=== PATIENT | female | born 1940 | race Hispanic/Latino ===

== ENCOUNTER 2017-10-18 08:18 | Day surgery (SDC) | payer MEDICARE, OTHER ==
[2017-10-14 07:12] VITALS: BMI 21.5
[2017-10-18 09:03] LABS: BASO # 0.01 K/mm3 (0.0-2.0); BASO % 0.3 % (0.0-3.0); EOS # 0.2 (0.0-0.7); EOS % 4.8 % (1.5-5.0); GRAN # 2.33 (1.4-6.5); GRAN % 58.7 % (50.0-68.0); HEMOGLOBIN 11.5 g/dL (12.0-16.0); LYMPH % 25.3 % (22.0-35.0); MEAN CELL VOLUME 89.4 fl (80.0-105.0); MEAN CORPUSCULAR HEMOGLOBIN 30.5 pg (25.0-35.0); MEAN CORPUSCULAR HGB CONC 34.1 g/dl (31.0-37.0); MEAN PLATELET VOLUME 9.1 fl (7.0-11.0); MONO # 0.4 (0.1-0.6); MONO % 10.9 % (1.0-6.0); RBC 3.77 10^6/uL (3.5-6.1); RED CELL DISTRIBUTION WIDTH 14.6 % (11.5-14.5)
[2017-10-18 09:13] LABS: INR 1.12 (0.93-1.08); PARTIAL THROMBOPLASTIN TIME 26.5 Seconds (25.1-36.5); PROTHROMBIN TIME 12.9 SECONDS (9.4-12.5)
[2017-10-18] MEDS ORDERED: Propofol 10 mg/ml Inj (20 ML) ONE (09:48)
[2017-10-18] MEDS ORDERED: Sodium Chloride 0.9% 1,000 ML IV SCH (10:00)
[2017-10-18 11:31] VITALS: BP 131/65; PULSE 57; RESP 14; TEMP 97.5; O2SAT 98
== END 2017-10-18 12:23 | disposition home or self-care (01) ==
LOC: ENDO 08:18
PROVIDERS: ATTEND Internal Medicine Gastroenterology
DX: K31.819 Angiodysplasia of stomach and duodenum without bleeding (principal); K20.9 Esophagitis, unspecified; K76.6 Portal hypertension; K31.89 Other diseases of stomach and duodenum
CPT/HCPCS: 36415; 43255; 85025; 85610; 85730; J2001; J2704; J7030; J7040

== ENCOUNTER 2017-12-14 05:21 | Emergency (ER) | payer MEDICARE, OTHER ==
[2017-12-14 05:22] VITALS: BMI 21.5
[2017-12-14] MEDS ORDERED: Sodium Chloride 0.9% 1,000 ML IV STA (05:48)
--- NOTE | 2017-12-14 05:58 | ED PDOC ---
Arrival/HPI - General Historian: Patient - History of Present Illness Time/Duration: 4-6 hours Symptom Onset: Gradual Symptom Course: Unchanged Quality: Aching, Burning, Gas Like Activities at Onset: Rest <Arya Campos - Last Filed: 12/14/17 06:59> <Isaac Kolb - Last Filed: 12/14/17 19:19> - General Chief Complaint: GI Problem Time Seen by Provider: 12/14/17 05:29 - History of Present Illness Narrative History of Present Illness (Text): 12/14/17 05:49 Patient is a 76 year-old female with a PMH of non-alcoholic cirrhosis, gastric vascular ectasia (last EGD in September 2017), GI bleed, GERD, C-diff (treated in 2015), breast cancer (s/p mastectomy), and hypothyroidism presents to the ED complaining of diarrhea and abdominal pain. She states that the diarrhea began yesterday morning and has gotten a little better today after taking pepto- bismol. The abdominal pain started 4 hours ago and is what prompted the patient to come to the ED. She describes the abdominal pain as a cramping and burning. It is located in her lower right and left quadrants and does not radiate. Patient admitted to nausea and bright red blood per rectum intermittently (she has history of hemorrhoids). Patient denied vomiting, black/tarry stools, fever , chills, dyspnea, or chest pain. (Arya Campos) Past Medical History - Provider Review Nursing Documentation Reviewed: Yes - Travel History Have you recently traveled outside [place] w/in the past 3 mons?: No - Infectious Disease Hx of Infectious Diseases: C.diff - Tetanus Immunization Tetanus Immunization: Unknown - Cardiac Hx Pacemaker: No - Neurological Hx Paralysis: No - Endocrine/Metabolic Hx Hypothyroidism: Yes - Hematological/Oncological Hx Blood Transfusions: No (IRON INFUSIONS) Hx Blood Transfusion Reaction: No - Musculoskeletal/Rheumatological Hx Musculoskeletal Disorders: No - Gastrointestinal Other/Comment: non alcoholic cirrhosis - Psychiatric Hx Emotional Abuse: No Hx Physical Abuse: No Hx Substance Use: No - Surgical History Hx Hysterectomy: Yes Hx Mastectomy: Yes (left) Other/Comment: L mastectomy - Anesthesia Hx Anesthesia Reactions: No Hx Malignant Hyperthermia: No - Suicidal Assessment Feels Threatened In Home Enviroment: No <Arya Campos - Last Filed: 12/14/17 06:59> Family/Social History - Physician Review Nursing Documentation Reviewed: Yes Family/Social History: No Known Family HX Smoking Status: Former Smoker Hx Alcohol Use: Yes (SOCIAL) Hx Substance Use: No Hx Substance Use Treatment: No <CamposArya - Last Filed: 12/14/17 06:59> Allergies/Home Meds <AndresArya - Last Filed: 12/14/17 06:59> <Isaac Kolb - Last Filed: 12/14/17 19:19> Allergies/Adverse Reactions: Allergies codeine Adverse Reaction (Severe, Verified 10/14/17 07:12) NAUSEA levofloxacin Adverse Reaction (Severe, Verified 10/14/17 07:12) AFFECTED TENDONS Home Medications: Home Meds Medication Instructions Recorded Confirmed Levothyroxine Sodium 88 mcg PO QAM 02/24/12 10/18/17 Multivitamin [One Daily] 1 tab PO DAILY 07/10/15 10/18/17 Nadolol [Corgard] 20 mg PO Q48H 07/10/15 10/18/17 Fluticasone/Salmeterol 250/50 1 puff IH BID 10/14/17 10/18/17 [Advair Diskus] Omeprazole 20 mg PO DAILY 10/18/17 10/18/17 Review of Systems - Review of Systems Constitutional: absent: Fatigue, Fevers Eyes: absent: Vision Changes ENT: absent: Sore Throat, Rhinorrhea Respiratory: absent: SOB, Cough Cardiovascular: absent: Chest Pain, Edema Gastrointestinal: Abdominal Pain, Diarrhea, Nausea. absent: Vomiting Genitourinary Female: absent: Dysuria, Frequency Musculoskeletal: absent: Arthralgias Skin: absent: Rash, Pruritis Neurological: absent: Headache, Speech Changes Endocrine: absent: Diaphoresis Hemo/Lymphatic: absent: Adenopathy Psychiatric: absent: Anxiety, Depression <Arya Campos - Last Filed: 12/14/17 06:59> Physical Exam Vital Signs Reviewed: Yes Temperature: Afebrile Blood Pressure: Normal Pulse: Regular Respiratory Rate: Normal Appearance: Positive for: Non-Toxic, Comfortable Pain Distress: Mild Mental Status: Positive for: Alert and Oriented X 3 - Systems Exam Head: Present: Atraumatic, Normocephalic Pupils: Present: PERRL Extroacular Muscles: Present: EOMI Conjunctiva: Present: Normal Ears: Present: Normal Mouth: Present: Moist Mucous Membranes Pharnyx: Present: Normal. No: ERYTHEMA, EXUDATE Nose (External): Present: Atraumatic Neck: Present: Normal Range of Motion. No: JVD Respiratory/Chest: Present: Clear to Auscultation. No: Wheezes, Rales, Rhonchi Cardiovascular: Present: Regular Rate and Rhythm, Normal S1, S2. No: Murmurs, Rub, Gallop Abdomen: Present: Tenderness (mild tenderness to palpation lower quadrants bilaterally) Rectal: Present: Rectal Tenderness, Hemorrhoids, Normal Rectal Tone. No: Occult Blood, Gross Blood Upper Extremity: Present: Normal Inspection. No: Cyanosis, Edema Lower Extremity: Present: Normal Inspection. No: Edema Neurological: Present: Speech Normal Skin: Present: Warm, Dry Psychiatric: Present: Alert, Oriented x 3 <Arya Campos - Last Filed: 12/14/17 06:59> Vital Signs Temp Pulse Resp BP Pulse Ox 12/14/17 11:30 98.2 F 80 18 150/88 98 12/14/17 10:00 98.0 F 68 18 148/58 L 98 12/14/17 07:48 72 18 155/51 H 98 12/14/17 05:45 97.9 F 56 L 18 161/83 H 99 Medical Decision Making - Transfer of Care Patient signed out to Dr:: David Berrios <Arya Campos - Last Filed: 12/14/17 06:59> - Transfer of Care Patient signed out to Dr:: David Berrios labs ct scan <Isaac Kolb - Last Filed: 12/14/17 19:19> ED Course and Treatment: 12/14/17 06:59 Sign out given to Dr. David Berrios (Arya Campos) 12/14/17 06:39 Patient Seen With Resident: In agreement with resident note which contains more details about the patient. Patient was seen and evaluated with resident. Came up with plan and treatment together, labs possible ct scan (Isaac Kolb) - Lab Interpretations Lab Results: 12/14/17 06:39 12/14/17 06:39 Lab Results 12/14/17 06:39: Urine Color Straw, Urine Appearance Clear, Urine pH 6.0, Ur Specific [place] 1.010, Urine Protein Negative, Urine Glucose (UA) Negative, Urine Ketones Negative, Urine Blood Small H, Urine Nitrate Negative, Urine Bilirubin Negative, Urine Urobilinogen 0.2, Ur Leukocyte Esterase Small H, Urine RBC 2 - 5, Urine WBC 5 - 10, Ur Epithelial Cells 4 - 5, Urine Bacteria Mod 12/14/17 06:39: Sodium 144, Potassium 4.4, Chloride 107, Carbon Dioxide 24, Anion Gap 17, BUN 18, Creatinine 0.9, Est GFR ( Amer) > 60, Est GFR (Non- Af Amer) > 60, Random Glucose 112 H, Calcium 9.9, Phosphorus 4.2, Magnesium 1.9 , Total Bilirubin 0.5, AST 44 H, ALT 34, Alkaline Phosphatase 115, Total Protein 7.6, Albumin 4.4, Globulin 3.2, Albumin/Globulin Ratio 1.4, Lipase 198 12/14/17 06:39: WBC 4.8, RBC 3.71, Hgb 11.3 L, Hct 32.6 L, MCV 87.9, MCH 30.5, MCHC 34.7, RDW 13.4, Plt Count 144, MPV 9.1, Gran % 65.8, Lymph % (Auto) 19.1 L , [place] % (Auto) 10.1 H, Eos % (Auto) 4.6, Baso % (Auto) 0.4, Gran # 3.14, Lymph # (Auto) 0.9 L, [place] # (Auto) 0.5, Eos # (Auto) 0.2, Baso # (Auto) 0.02 12/14/17 06:39: PT 12.3, INR 1.07, APTT 26.8 12/14/17 06:39: TSH 3rd Generation 6.33 H - RAD Interpretation Radiology Orders: 12/14/17 07:08 ABD PELVIS PO & IV CONTRAST [CT] Stat - Medication Orders Current Medication Orders: Discontinued Medications Sodium Chloride (Sodium Chloride 0.9%) 1,000 mls @ 999 mls/hr IV .Q1H1M STA Stop: 12/14/17 06:48 Last Admin: 12/14/17 06:42 Dose: 999 mls/hr eMAR Start Stop Document 12/14/17 06:42 AD (Rec: 12/14/17 06:43 AD [id number]) Intravenous Solution Start Date 12/14/17 Start Time 06:42 End Date 12/14/17 End time 08:00 Total Infusion Time 78 Ondansetron HCl (Zofran Inj) 4 mg IVP STAT STA Stop: 12/14/17 05:49 Last Admin: 12/14/17 06:43 Dose: 4 mg IVP Administration Document 12/14/17 06:43 AD (Rec: 12/14/17 06:43 AD [id number]) Charges for Administration # of IVP Administrations 1 Pantoprazole Sodium (Protonix Inj) 40 mg IVP STAT STA Stop: 12/14/17 05:50 Last Admin: 12/14/17 06:43 Dose: 40 mg IVP Administration Document 12/14/17 06:43 AD (Rec: 12/14/17 06:43 AD [id number]) Charges for Administration # of IVP Administrations 1 - PA / [employer]OR[employer]IGN[employer] SALESPERSON / Resident Statement / has reviewed & agrees with the documentation as recorded. / has examined the patient and agrees with the treatment plan. <Isaac Kolb - Last Filed: 12/14/17 19:19> Disposition/Present on Arrival - Present on Arrival Any Indicators Present on Arrival: No History of DVT/PE: No History of Uncontrolled Diabetes: No Urinary Catheter: No History of Decub. Ulcer: No History Surgical Site Infection Following: None - Disposition Have Diagnosis and Disposition been Completed?: Yes Disposition Time: 07:00 <Arya Campos - Last Filed: 12/14/17 06:59> - Present on Arrival Any Indicators Present on Arrival: No - Disposition Have Diagnosis and Disposition been Completed?: Yes <Isaac Kolb - Last Filed: 12/14/17 19:19> - Disposition Diagnosis: Colitis, Abdominal pain Disposition: HOME/ ROUTINE Condition: FAIR Discharge Instructions (ExitCare): Diarrhea in Adolescents and Adults, Diverticulitis Additional Instructions: AURORA GARCIA, thank you for letting us take care of you today. Your provider was David Berrios and you were treated for abdominal pain / nausea / vomiting / diarriah. The emergency medical care you received today was directed at your acute symptoms. If you were prescribed any medication, please fill it and take as directed. It may take several days for your symptoms to resolve. Return to the Emergency Department if your symptoms worsen, do not improve, or if you have any other problems. Please contact your doctor or call one of the physicians/clinics you have been referred to that are listed on the Patient Visit Information form that is included in your discharge packet. Bring any paperwork you were given at discharge with you along with any medications you are taking to your follow up visit. Our treatment cannot replace ongoing medical care by a primary care provider outside of the emergency department. Thank you for allowing the [facility] team to be part of your care today. If you had an X-Ray or CT scan: A Radiologist will review the ED reading if any change in treatment is needed we will contact you. If you had a blood, urine, or wound culture: It will take several days for the results, if any change in treatment is needed we will contact you. If you had an STI test: It will take 48 hours for the results. Please call after 1 week if you have not heard back. Prescriptions: metroNIDAZOLE [Flagyl] 500 mg PO TID 14 Days #42 tab Referrals: Alix Alicia MD [Medical Doctor] - Follow up with primary Forms: [employer] (Ivorian)
[2017-12-14 06:53] VITALS: RESP 18
[2017-12-14 06:53] LABS: BASO # 0.02 K/mm3 (0.0-2.0); BASO % 0.4 % (0.0-3.0); EOS # 0.2 (0.0-0.7); EOS % 4.6 % (1.5-5.0); GRAN # 3.14 (1.4-6.5); GRAN % 65.8 % (50.0-68.0); HEMOGLOBIN 11.3 g/dL (12.0-16.0); LYMPH # 0.9 (1.2-3.4); LYMPH % 19.1 % (22.0-35.0); MEAN CELL VOLUME 87.9 fl (80.0-105.0); MEAN CORPUSCULAR HEMOGLOBIN 30.5 pg (25.0-35.0); MEAN CORPUSCULAR HGB CONC 34.7 g/dl (31.0-37.0); MEAN PLATELET VOLUME 9.1 fl (7.0-11.0); MONO # 0.5 (0.1-0.6); MONO % 10.1 % (1.0-6.0); RBC 3.71 10^6/uL (3.5-6.1); RED CELL DISTRIBUTION WIDTH 13.4 % (11.5-14.5); WHITE BLOOD COUNT 4.8 10^3/ul (4.5-11.0)
[2017-12-14 06:54] LABS: URINE BILIRUBIN NEGATIVE (NEGATIVE); URINE BLOOD SMALL (NEGATIVE); URINE GLUCOSE (UA) NEGATIVE (NEGATIVE); URINE LEUKOCYTE ESTERASE SMALL Leu/uL (NEGATIVE); URINE PROTEIN NEGATIVE mg/dL (<30 mg/dL); URINE UROBILINOGEN 0.2 E.U./dL (<1 E.U./dL)
[2017-12-14 06:56] LABS: URINE APPEARANCE CLEAR (CLEAR)
[2017-12-14 06:57] LABS: URINE COLOR STRAW (YELLOW)
[2017-12-14 07:06] LABS: ALB/GLOB RATIO 1.4 (1.1-1.8); ALBUMIN 4.4 g/dL (3.0-4.8); ALT/SGPT 34 U/L (7-56); AST/SGOT 44 U/L (14-36); BLOOD UREA NITROGEN 18 mg/dL (7-21); CALCIUM 9.9 mg/dL (8.4-10.5); GFR AFRICAN-AMERICAN > 60; GFR NON-AFRICAN AMERICAN > 60; INR 1.07; PARTIAL THROMBOPLASTIN TIME 26.8 Seconds (25.1-36.5); PROTHROMBIN TIME 12.3 SECONDS (9.4-12.5)
--- NOTE | 2017-12-14 07:10 | ED PDOC ---
Physical Exam Vital Signs Temp Pulse Resp BP Pulse Ox 12/14/17 11:30 98.2 F 80 18 150/88 98 12/14/17 10:00 98.0 F 68 18 148/58 L 98 12/14/17 07:48 72 18 155/51 H 98 12/14/17 05:45 97.9 F 56 L 18 161/83 H 99 Medical Decision Making ED Course and Treatment: 12/14/17 07:08 Case endorsed to me by Dr. Kolb. Patient is a 76 year-old female whose PMH includes non-alcoholic cirrhosis, gastric vascular ectasia (last EGD in September 2017), GI bleed, GERD, C-diff (treated in 2015), breast cancer (s/p mastectomy) , and hypothyroidism, with complaints of lower abdominal pain associated with diarrhea since one day ago. Currently pending lab results and CT abdomen and pelvis. No recent travel abroad, no dark or bloody stool. 12/14/17 10:58 Patient is not longer in any distress or pain. Patient is requesting Flagyl in addition to Augmentin, (Augmentin due to being allergic to cipro). Patient's CT scan showed colitis on results. lipase unremarkable. 12/14/17 11:00 CT abdomen and pelvis: Creator : Dar Beltran MD FINDINGS: LOWER THORAX: Unremarkable. LIVER: Unremarkable. No gross lesion or ductal dilatation. GALLBLADDER AND BILE DUCTS: Unremarkable. PANCREAS: Unremarkable. No gross lesion or ductal dilatation. SPLEEN: Unremarkable. ADRENALS: Unremarkable. No mass. KIDNEYS AND URETERS: Unremarkable. No hydronephrosis. No solid mass. VASCULATURE: Unremarkable. No aortic aneurysm. BOWEL: There is mural thickening in the sigmoid colon consistent with colitis APPENDIX: Normal appendix. PERITONEUM: Unremarkable. No free fluid. No free air. LYMPH NODES: Unremarkable. No enlarged lymph nodes. BLADDER: Unremarkable. REPRODUCTIVE: Unremarkable. BONES: No acute fracture. OTHER FINDINGS: None. IMPRESSION: There is mural thickening in the sigmoid colon consistent with colitis 12/14/17 11:[address] Sands who is requesting Flagyl since there is no indication for Augmentin (given hx of . 12/14/17 11:37 - Lab Interpretations Lab Results: 12/14/17 06:39 12/14/17 06:39 Lab Results 12/14/17 06:39: Urine Color Straw, Urine Appearance Clear, Urine pH 6.0, Ur Specific [place] 1.010, Urine Protein Negative, Urine Glucose (UA) Negative, Urine Ketones Negative, Urine Blood Small H, Urine Nitrate Negative, Urine Bilirubin Negative, Urine Urobilinogen 0.2, Ur Leukocyte Esterase Small H, Urine RBC 2 - 5, Urine WBC 5 - 10, Ur Epithelial Cells 4 - 5, Urine Bacteria Mod 12/14/17 06:39: Sodium 144, Potassium 4.4, Chloride 107, Carbon Dioxide 24, Anion Gap 17, BUN 18, Creatinine 0.9, Est GFR ( Amer) > 60, Est GFR (Non- Af Amer) > 60, Random Glucose 112 H, Calcium 9.9, Phosphorus 4.2, Magnesium 1.9 , Total Bilirubin 0.5, AST 44 H, ALT 34, Alkaline Phosphatase 115, Total Protein 7.6, Albumin 4.4, Globulin 3.2, Albumin/Globulin Ratio 1.4, Lipase 198 12/14/17 06:39: WBC 4.8, RBC 3.71, Hgb 11.3 L, Hct 32.6 L, MCV 87.9, MCH 30.5, MCHC 34.7, RDW 13.4, Plt Count 144, MPV 9.1, Gran % 65.8, Lymph % (Auto) 19.1 L , [place] % (Auto) 10.1 H, Eos % (Auto) 4.6, Baso % (Auto) 0.4, Gran # 3.14, Lymph # (Auto) 0.9 L, [place] # (Auto) 0.5, Eos # (Auto) 0.2, Baso # (Auto) 0.02 12/14/17 06:39: PT 12.3, INR 1.07, APTT 26.8 12/14/17 06:39: TSH 3rd Generation 6.33 H - RAD Interpretation Radiology Orders: 12/14/17 07:08 ABD PELVIS PO & IV CONTRAST [CT] Stat - Medication Orders Current Medication Orders: Discontinued Medications Sodium Chloride (Sodium Chloride 0.9%) 1,000 mls @ 999 mls/hr IV .Q1H1M STA Stop: 12/14/17 06:48 Last Admin: 12/14/17 06:42 Dose: 999 mls/hr eMAR Start Stop Document 12/14/17 06:42 AD (Rec: 12/14/17 06:43 AD [id number]) Intravenous Solution Start Date 12/14/17 Start Time 06:42 End Date 12/14/17 End time 08:00 Total Infusion Time 78 Ondansetron HCl (Zofran Inj) 4 mg IVP STAT STA Stop: 12/14/17 05:49 Last Admin: 12/14/17 06:43 Dose: 4 mg IVP Administration Document 12/14/17 06:43 AD (Rec: 12/14/17 06:43 AD [id number]) Charges for Administration # of IVP Administrations 1 Pantoprazole Sodium (Protonix Inj) 40 mg IVP STAT STA Stop: 12/14/17 05:50 Last Admin: 12/14/17 06:43 Dose: 40 mg IVP Administration Document 12/14/17 06:43 AD (Rec: 12/14/17 06:43 AD [id number]) Charges for Administration # of IVP Administrations 1 - Scribe Statement The provider has reviewed the documentation as recorded by the Serenity Barragan Provider Scribe Attestation: All medical record entries made by the Scribe were at my direction and personally dictated by me. I have reviewed the chart and agree that the record accurately reflects my personal performance of the history, physical exam, medical decision making, and the department course for this patient. I have also personally directed, reviewed, and agree with the discharge instructions and disposition. Disposition/Present on Arrival - Present on Arrival Any Indicators Present on Arrival: No History of DVT/PE: No History of Uncontrolled Diabetes: No Urinary Catheter: No History of Decub. Ulcer: No History Surgical Site Infection Following: None - Disposition Have Diagnosis and Disposition been Completed?: Yes Diagnosis: Colitis, Abdominal pain Disposition: HOME/ ROUTINE Disposition Time: 11:00 Patient Problems: Current Active Problems Problem Status Onset Abdominal pain Acute Colitis Acute Condition: FAIR Discharge Instructions (ExitCare): Diarrhea in Adolescents and Adults, Diverticulitis Additional Instructions: AURORA GARCIA, thank you for letting us take care of you today. Your provider was David Berrios and you were treated for abdominal pain / nausea / vomiting / diarriah. The emergency medical care you received today was directed at your acute symptoms. If you were prescribed any medication, please fill it and take as directed. It may take several days for your symptoms to resolve. Return to the Emergency Department if your symptoms worsen, do not improve, or if you have any other problems. Please contact your doctor or call one of the physicians/clinics you have been referred to that are listed on the Patient Visit Information form that is included in your discharge packet. Bring any paperwork you were given at discharge with you along with any medications you are taking to your follow up visit. Our treatment cannot replace ongoing medical care by a primary care provider outside of the emergency department. Thank you for allowing the [facility] team to be part of your care today. If you had an X-Ray or CT scan: A Radiologist will review the ED reading if any change in treatment is needed we will contact you. If you had a blood, urine, or wound culture: It will take several days for the results, if any change in treatment is needed we will contact you. If you had an STI test: It will take 48 hours for the results. Please call after 1 week if you have not heard back. Prescriptions: metroNIDAZOLE [Flagyl] 500 mg PO TID 14 Days #42 tab Referrals: Alix Alicia MD [Medical Doctor] - Follow up with primary Forms: [employer] (Armenian)
[2017-12-14 07:20] LABS: URINE BACTERIA MOD (NEG)
[2017-12-14] MEDS ORDERED: Iohexol 240 (50 ml) ONE (07:33)
[2017-12-14 07:50] VITALS: O2SAT 98
[2017-12-14 08:40] LABS: LIPASE 198 U/L (23-300)
[2017-12-14] MEDS ORDERED: Iohexol 350 MG/100 ML VIAL ONE (09:47)
--- NOTE | 2017-12-14 10:42 | CT ---
Date of service: 12/14/2017 PROCEDURE: CT Abdomen and Pelvis with contrast HISTORY: diarrhea, LLQ abd pain, hx of diverticulitis COMPARISON: None. TECHNIQUE: Contrast dose: 100 cc of Omni 350 Radiation dose: Total exam DLP = 253 mGy-cm. This CT exam was performed using one or more of the following dose reduction techniques: Automated exposure control, adjustment of the mA and/or kV according to patient size, and/or use of iterative reconstruction technique. FINDINGS: LOWER THORAX: Unremarkable. LIVER: Unremarkable. No gross lesion or ductal dilatation. GALLBLADDER AND BILE DUCTS: Unremarkable. PANCREAS: Unremarkable. No gross lesion or ductal dilatation. SPLEEN: Unremarkable. ADRENALS: Unremarkable. No mass. KIDNEYS AND URETERS: Unremarkable. No hydronephrosis. No solid mass. VASCULATURE: Unremarkable. No aortic aneurysm. BOWEL: There is mural thickening in the sigmoid colon consistent with colitis APPENDIX: Normal appendix. PERITONEUM: Unremarkable. No free fluid. No free air. LYMPH NODES: Unremarkable. No enlarged lymph nodes. BLADDER: Unremarkable. REPRODUCTIVE: Unremarkable. BONES: No acute fracture. OTHER FINDINGS: None. IMPRESSION: There is mural thickening in the sigmoid colon consistent with colitis
[2017-12-14 11:31] VITALS: BP 150/88; PULSE 80; TEMP 98.2
== END 2017-12-14 12:16 | disposition home or self-care (01) ==
LOC: ED 05:21
DX: K52.9 Noninfective gastroenteritis and colitis, unspecified (principal); K74.60 Unspecified cirrhosis of liver; K21.9 Gastro-esophageal reflux disease without esophagitis
CPT/HCPCS: 74177; 80053; 81001; 83690; 83735; 84100; 84443; 85025; 85610; 85730; 87086; 87181; 96361; 96374; 96375; 99284; C9113; J2405; J7030; Q9966; Q9967

== ENCOUNTER 2018-01-31 07:50 | Day surgery (SDC) | payer MEDICARE, OTHER ==
[2018-01-31] MEDS ORDERED: Propofol 10 mg/ml Inj (20 ML) ONE (09:40)
[2018-01-31] MEDS ORDERED: Lidocaine 1% Inj (20ml) ONE (09:40)
[2018-01-31] MEDS ORDERED: Sodium Chloride 0.9% 1,000 ML IV SCH (10:30)
[2018-01-31 11:53] VITALS: BP 141/67; PULSE 55; RESP 21; TEMP 97.7; O2SAT 98
== END 2018-01-31 12:50 | disposition home or self-care (01) ==
LOC: ENDO 07:50
PROVIDERS: ATTEND Internal Medicine Gastroenterology
DX: K31.819 Angiodysplasia of stomach and duodenum without bleeding (principal); K74.60 Unspecified cirrhosis of liver; K76.6 Portal hypertension; D50.9 Iron deficiency anemia, unspecified
CPT/HCPCS: 43255; J2704; J7030; J7040

== ENCOUNTER 2018-07-21 08:39 | Outpatient (CLI) | payer MEDICARE, OTHER | END 2018-07-21 08:40 | disposition home or self-care (01) | LOC: RAD 08:39 | DX: C50.012 Malignant neoplasm of nipple and areola, left female breast (principal) ==

== ENCOUNTER 2018-08-25 09:19 | Outpatient (CLI) | payer MEDICARE, OTHER | END 2018-08-25 09:20 | disposition home or self-care (01) | LOC: RAD 09:19 ==